=== PATIENT | female | born 1955 | race Caucasian/White ===

== ENCOUNTER 2020-11-10 11:23 | Outpatient (CLI) | payer BC, SELFPAY ==
[2020-11-10 12:18] LABS: Alanine Aminotransferase 33 U/L (4-35); Aspartate Amino Transferase 46 U/L (14-36)
== END 2020-11-10 11:24 | disposition home or self-care (01) ==
PROVIDERS: PCP Internal Medicine; Visit Provider Podiatrist Foot & Ankle Surgery
DX: B35.1 Tinea unguium (principal)
CPT/HCPCS: 36415; 84450; 84460

== ENCOUNTER 2024-10-20 12:02 | Outpatient (CLI) | payer MEDICARE, OTHER, SELFPAY ==
--- NOTE | ~2024-10-20 | US_ITS ---
US retroperitoneal comp Ordering provider: Soco Eldridge, [place] History: . incomplete bladder emptying . Comparison: None. Technique: Ultrasound bilateral kidneys. Findings: RIGHT KIDNEY: Measures 9.8x 3.9x 3.9 cm in length which is normal in size. No renal cysts. No renal m ass or visualized echogenic stones. Otherwise, normal echotexture and contour.mild hydronephrosis. Renal pelvis measures 1.4 cm. Normal renal cortical thickness. LEFT KIDNEY: Measures 9.3x 5x 5.3 cm in length which is normal in size. No renal cysts. No renal mass or visualized echogenic stones. Otherwise, normal echotexture and contour. Mild hydronephrosis.. Thi s measures 1.4 cm. Normal renal cortical thickness. BLADDER: Normal. Ureteral jets were seen bilaterally. Prevoid volume 508.38 mL. Postvoid volume is 36 .66 mL. IMPRESSION: Mild bilateral hydronephrosis. Otherwise, normal. Reviewed, dictated and finalized at location A.
== END 2024-10-20 12:03 | disposition home or self-care (01) ==
LOC: GOSHIMG 12:03
PROVIDERS: PCP Physician Assistant Medical; Visit Provider Physician Assistant Medical
DX: R33.9 Retention of urine, unspecified (principal)
CPT/HCPCS: 76770